=== PATIENT | male | born 1990 | race Caucasian/White ===

== ENCOUNTER 2016-06-30 10:33 | Emergency (ER) | payer BC, OTHER ==
[2016-06-30 11:25] VITALS: BP 123/84
[2016-06-30] MEDS ORDERED: Cyclopentolate 1% OPTH.SOL* 2 ML BTL RIGHT EYE ONE (12:43)
--- NOTE | 2016-06-30 12:49 | UC ---
Eye Complaint HPI - HPI Summary HPI Summary: redness, pain, tearing right eye today. No injury. No contacts. Mild viral URI symtpoms recently. No chemical exposures. Had pinkeye once before, it wasn't this painful. Very photophobic. Pain/pressure behind eyeball. - History of Current Complaint Chief Complaint: UCEye Stated Complaint: RIGHT EYE COMPLAINT Time Seen by Provider: 06/30/16 12:35 Hx Obtained From: Patient Onset/Duration: Gradual Onset, Lasting Days - 1; started last night, felt mildly gritty, then red and painful this AM. No crusting Timing: Constant Severity Initially: Mild Severity Currently: Moderate Location of Injury: Conjunctiva Character: Dull, Throbbing Aggravating Factor(s): Light, Blinking, Ultraviolet Exposure Alleviating Factor(s): Nothing Associated Signs And Symptoms: Positive: Photophobia, Drainage (Clear). Negative: Vision Impairment Right, Fever, Swelling - Risk Factors Penetrating Injury Risk Factor: Negative Globe Rupture Risk Factors: Negative Acute Glaucoma Risk Factors: Eye Inflammation Optic Artery Occlusion Risk Factors: Negative - Allergies/Home Medications Allergies/Adverse Reactions: Allergies Allergy/AdvReac Type Severity Reaction Status Date / Time No Known Allergies Allergy Verified 06/30/16 11:25 PMH/Surg Hx/FS Hx/Imm Hx Previously Healthy: Yes - Surgical History Surgical History: Yes Surgery Procedure, Year, and Place: Left elbow dislocated. Laceration over right eye. right elbow dislocation - Family History Known Family History: Positive: Other - no eye abnormalities - Social History Occupation: Student Lives: Alone - dorm Alcohol Use: Occasionally Substance Use Type: None Smoking Status (MU): Never Smoked Tobacco Review of Systems Constitutional: Negative Skin: Negative Eyes: Drainage, Eye Redness, Photophobia ENT: Nasal Discharge Respiratory: Cough - mild Cardiovascular: Negative Gastrointestinal: Negative Genitourinary: Negative Motor: Negative Neurovascular: Negative Musculoskeletal: Negative Neurological: Negative Psychological: Negative All Other Systems Reviewed And Are Negative: Yes Physical Exam Triage Information Reviewed: Yes Appearance: Well-Appearing, No Pain Distress, Well-Nourished Vital Signs: Initial Vital Signs Temp 98.6 F 06/30/16 11:19 Pulse 89 06/30/16 11:19 Resp 14 06/30/16 11:19 BP 123/84 06/30/16 11:19 Pulse Ox 96 06/30/16 11:19 Vital Signs Reviewed: Yes Eyes: Positive: Conjunctiva Inflamed - right eye. Negative: Discharge ENT Exam: Normal ENT: Positive: Pharynx normal, TMs normal. Negative: Tonsillar swelling, Trismus, Muffled/hoarse voice Neck exam: Normal Neck: Positive: Supple Respiratory Exam: Normal Cardiovascular Exam: Normal Musculoskeletal Exam: Normal Neurological Exam: Normal Psychological Exam: Normal Skin Exam: Normal Eye Complaint Course/Dx - Course Course Of Treatment: advised follow up with Ophthalmology if not better tomorrow - Differential Dx/Diagnosis Differential Diagnosis/HQI/PQRI: Conjunctivitis, Keratitis, Uveitis Provider Diagnoses: conjunctivitis Discharge - Discharge Plan Condition: Stable Disposition: HOME Prescriptions: Ciprofloxacin 0.3% OPTH.[place]* [Cipro 0.3% Opth*] 1 drop BOTH EYES Q4H #1 btl HYDROcodone/ACETAMIN 5-325 MG* [[place] 5-325 TAB*] 1 - 2 tab PO Q6H PRN #10 tab MDD 6 tab PRN Reason: Pain Patient Education Materials: Conjunctivitis (ED) Forms: *School Release Referrals: Elayne Serrano MD [Medical Doctor] - Non Staff,Doctor [Primary Care Provider] - Additional Instructions: If your eye is not improving in the next 24 hours, contact Dr. Serrano ( [facility]) Cold compresses to the eye Rest in a dark room, wear sunglasses when outside Put the antibiotic drops in BOTH eyes every four hours.
== END 2016-06-30 12:53 | disposition home or self-care (01) ==
LOC: UCCORT 10:33
DX: H10.31 Unspecified acute conjunctivitis, right eye (principal)
CPT/HCPCS: 99212; A9270-GY; G0463

== ENCOUNTER 2016-09-21 10:01 | Emergency (ER) | payer BC ==
[2016-09-21 10:11] VITALS: BP 134/79
[2016-09-21] MEDS ORDERED: methylPREDNISolone SOD SUCC* 125 MG 2 ML VIAL IM ONE (10:17)
--- NOTE | 2016-09-21 10:23 | UC ---
Throat Pain/Nasal Noah HPI - HPI Summary HPI Summary: had a sudden onset of sore throat, dysphagia, fever, MACDONALD and chills, bodyaches. - History of Current Complaint Chief Complaint: UCGeneralIllness Stated Complaint: SORE THROAT,CHILLS Time Seen by Provider: 09/21/16 10:14 Hx Obtained From: Patient Onset/Duration: Sudden Onset, Lasting Days Severity: Severe Associated Signs & Symptoms: Positive: Dysphagia, Hoarseness, Fever - Epiglottits Risk Factors Epiglottis Risk Factors: Negative - Allergies/Home Medications Allergies/Adverse Reactions: Allergies Allergy/AdvReac Type Severity Reaction Status Date / Time No Known Allergies Allergy Verified 09/21/16 10:10 Home Medications: Home Medications [id number] [Nyquil Severe Cold/Flu 5-6.25-10-325 mg/15Ml] 1 teasp PO DAILY 09/21/16 [History Confirmed 09/21/16] PMH/Surg Hx/FS Hx/Imm Hx Previously Healthy: Yes - Surgical History Surgical History: Yes Surgery Procedure, Year, and Place: Left elbow dislocated. Laceration over right eye. right elbow dislocation - Family History Known Family History: Positive: Other - no eye abnormalities Negative: Cardiac Disease, Hypertension - Social History Alcohol Use: Occasionally Substance Use Type: None Smoking Status (MU): Never Smoked Tobacco Review of Systems Constitutional: Fever, Chills, Fatigue Skin: Negative Eyes: Negative ENT: Sore Throat, Nasal Discharge Respiratory: Cough Cardiovascular: Negative Gastrointestinal: Negative Genitourinary: Negative Motor: Negative Neurovascular: Negative Musculoskeletal: Negative Neurological: Headache Psychological: Negative All Other Systems Reviewed And Are Negative: Yes Physical Exam Triage Information Reviewed: Yes Appearance: Well-Nourished, Ill-Appearing, Pain Distress Vital Signs: Initial Vital Signs Temp 100.2 F 09/21/16 10:06 Pulse 112 09/21/16 10:06 Resp 18 09/21/16 10:06 BP 134/79 09/21/16 10:06 Pulse Ox 97 09/21/16 10:06 Vital Signs Reviewed: Yes Eye Exam: Normal Eyes: Positive: Conjunctiva Clear ENT: Positive: Pharyngeal erythema, Nasal congestion, TM red, Tonsillar swelling - +4, Tonsillar exudate - on right tonsil Dental Exam: Normal Neck exam: Normal Neck: Positive: Supple, Nontender, Enlarged Nodes @ - bilateral cervical Respiratory Exam: Normal Respiratory: Positive: Chest non-tender, Lungs clear, Normal breath sounds Cardiovascular Exam: Normal Cardiovascular: Positive: No Murmur, Pulses Normal, Tachycardia Abdominal Exam: Normal Abdomen Description: Positive: Nontender, No Organomegaly, Soft Bowel Sounds: Positive: Present Musculoskeletal Exam: Normal Musculoskeletal: Positive: Strength Intact, ROM Intact, No Edema Neurological Exam: Normal Neurological: Positive: Alert, Muscle Tone Normal Psychological Exam: Normal Skin Exam: Normal Throat Pain/Nasal Course/Dx - Course Course Of Treatment: Hx obtained, exam performed, rapid strep obtained and neg, patient given solumedrol for reduction of inflammation of pharynx and tonsils. patient did take advil this morning, refused anything for pain. Monospot was obtained, ABX started prednisone prescribed. follow up with lab work. - Differential Dx/Diagnosis Differential Diagnosis/HQI/PQRI: Influenza, Laryngitis, Mononucleosis, Otitis Media, Pharyngitis, Sinusitis, URI Provider Diagnoses: tonsillitis. lymphadenopathy. fever. possible mono Discharge - Discharge Plan Condition: Stable Disposition: HOME Prescriptions: Cephalexin CAP* [Keflex CAP*] 500 mg PO BID #20 cap predniSONE TAB* [Deltasone TAB*] 40 mg PO DAILY #14 tab Patient Education Materials: Lymphadenopathy (ED) Additional Instructions: 1. Increase your fluid intake 2. Get plenty of rest 3. Take the medication as prescribed. 4. Lab work will be available tomorrow, will contact you with positive results. If you do not here from us finish your medications.
[2016-09-21 13:48] LABS: EBV Response NO
[2016-09-21 14:21] LABS: Mono Internal Control QC Line Present
[2016-09-21 14:22] LABS: Manual Entry Verification GRE0060
== END 2016-09-21 10:57 | disposition home or self-care (01) ==
LOC: UCCORT 10:01
DX: J03.90 Acute tonsillitis, unspecified (principal); R59.1 Generalized enlarged lymph nodes; R50.9 Fever, unspecified
CPT/HCPCS: 36415; 86308; 87651; 96372; 99212; G0463; J2930

== ENCOUNTER 2018-03-18 12:40 | Emergency (ER) | payer BC ==
--- OUTSIDE RECORDS SUMMARY | 2018-03-18 12:52 | XMS REPORT ---
:1990 Author Organization [facility] Address [facility] [address] [place] [address] Care Team Providers Name Role Phone Pedro De Oliveira Unavailable Unavailable PROBLEMS Unknown Problems ALLERGIES No Known Allergies ENCOUNTERS Encounter Location Date Diagnosis [facility] [address] Feb, Impacted cerumen of left [address] ear H61.22 and [id number] Immunization due Z23 [facility] [address] Oct, Establishing care with new [address] [place], [place] [id number] Z76.89 and Need for HPV vaccine Z23 [facility] [address] Mar, Acute frontal sinusitis, [address] recurrence not specified [id number] J01.10 and Sore throat J02.9 [facility] [address] September, Strep pharyngitis J02.[address] [address] [facility] [address] Aug, Left ankle injury 959.7 ; [facility] [address] [place], [place] [address] both eyes 372.00 ; Place of occurrence, home E849.0 and Striking against or struck accidentally by objects or persons in sports without subsequent fall E917.0 IMMUNIZATIONS Vaccine Route Administration Date Status HPV9 0.5mL (Gardasil 9) IM Intramuscular Mar 02, 2018 Administered Influenza (36 months & up) Fluzone IM Intramuscular Mar 02, 2018 Administered SOCIAL HISTORY Never Assessed REASON FOR REFERRAL FUNCTIONAL STATUS PLAN OF CARE Activity Details Follow Up prn, 3 Months Reason: VITAL SIGNS Weight 249.8 lbs 2018-03-02 Height 71 in 2018-03-02 BMI 34.84 kg/m2 2018-03-02 Heart Rate 84 /min 2018-03-02 Respiratory Rate 18 /min 2018-03-02 Temperature 97.9 degrees Fahrenheit 2018-03-02 Oximetry 97 2018-03-02 Blood pressure systolic 131 mm Hg 2018-03-02 Blood pressure diastolic 72 mm Hg 2018-03-02 MEDICATIONS Medication Instructions Dosage Frequency Start End Duration Status Date Date Debrox 6.5 % Otic Twice a day 5 drops 12h Feb, day(s) Active into 2018 affected right ear Flonase 50 Nasally Twice a 1 spray in 12h Mar, 30 day(s) Not-Takin MCG/ACT day each 2016 g nostril Augmentin Orally every 12 1 tablet 12h Mar, day(s) Not-Takin 875-125 MG hrs 2017 g Neti Pot Sinus Nasally bid as directed 12mar, day(s) Not-Takin Wash 2300-700 2016 g MG Mucinex DM Orally Twice a 1 tablet as 12mar, day(s) Not-Takin Maximum day needed 2016 g Strength 60-1200 MG Sudafed 12 Orally every 12 1 tablet as 12mar, day(s) Not-Takin Hour 120 MG hrs needed 2016 g PROCEDURES Procedure Date Ordered Result Body Site HPV9 0.5mL (Gardasil 9) Mar 02, 2018 IMMUNIZATION ADMIN Mar 02, 2018 Influenza (36 months & up) Mar 02, 2018 IMMUNIZATION ADMIN EACH ADD Mar 02, 2018 EAR IRRIGATION Mar 02, 2018 RESULTS No Results REASON FOR VISIT EAR BLOCKAGE Insurance Providers [facility] Member Patient Patient Patient Patient Patient Subscriber Subscriber Subscriber Group Insurance Plan Plan Plan Plan ID Relationship Address Phone Name Date of ID Name Date of No Type Insurance Insurance Insurance Coverage to Subscriber Address Phone Name Dates [place] [address] [phone] [employer] [place]AFNE [id number] [place] [address] PPO [address] [id number] [phone] [address] [id number] [facility] [id number] MEDICAL (GENERAL) HISTORY Type Description Date Surgical History ORIF right thumb
[2018-03-18 12:54] VITALS: BP 136/81
--- NOTE | 2018-03-18 13:33 | UC ---
Eye Complaint HPI - HPI Summary HPI Summary: Pt c/o sudden onset of left eye redness, "yellow " discharge that began 1 day ago. Pt reports that today he woke with left eye "glued shut". - History of Current Complaint Chief Complaint: UCEye Stated Complaint: LEFT EYE COMPLAINT Time Seen by Provider: 03/18/18 13:17 Hx Obtained From: Patient Onset/Duration: Sudden Onset, Lasting Days, Still Present Timing: Constant Severity Initially: Mild Severity Currently: Mild Pain Intensity: 0 Aggravating Factor(s): Nothing Alleviating Factor(s): Nothing Associated Signs And Symptoms: Positive: Drainage (Purulent) - Risk Factors Penetrating Injury Risk Factor: Negative Acute Glaucoma Risk Factors: Negative Optic Artery Occlusion Risk Factors: Negative - Allergies/Home Medications Allergies/Adverse Reactions: Allergies Allergy/AdvReac Type Severity Reaction Status Date / Time No Known Allergies Allergy Verified 03/18/18 12:51 PMH/Surg Hx/FS Hx/Imm Hx Previously Healthy: Yes - Surgical History Surgical History: Yes Surgery Procedure, Year, and Place: Left elbow dislocated. Laceration over right eye. right elbow break 2006 - Family History Known Family History: Positive: Other - no eye abnormalities Negative: Cardiac Disease, Hypertension - Social History Occupation: Employed Full-time Lives: With Family Alcohol Use: Occasionally Substance Use Type: None Smoking Status (MU): Never Smoked Tobacco Have You Smoked in the Last Year: No Review of Systems Constitutional: Negative Skin: Negative Eyes: Drainage, Eye Redness ENT: Negative Respiratory: Negative Cardiovascular: Negative Gastrointestinal: Negative Genitourinary: Negative Motor: Negative Neurovascular: Negative Musculoskeletal: Negative Neurological: Negative Psychological: Negative Is Patient Immunocompromised?: No All Other Systems Reviewed And Are Negative: Yes Physical Exam Triage Information Reviewed: Yes Appearance: Well-Appearing Vital Signs: Initial Vital Signs Temp 98.3 F 03/18/18 12:48 Pulse 88 03/18/18 12:48 Resp 16 03/18/18 12:48 BP 136/81 03/18/18 12:48 Pulse Ox 97 03/18/18 12:48 Vital Signs Reviewed: Yes Eyes: Positive: Conjunctiva Inflamed, Discharge ENT Exam: Normal Dental Exam: Normal Neck exam: Normal Respiratory Exam: Normal Cardiovascular Exam: Normal Musculoskeletal Exam: Normal Neurological Exam: Normal Psychological Exam: Normal Skin Exam: Normal Eye Complaint Course/Dx - Differential Dx/Diagnosis Differential Diagnosis/HQI/PQRI: Conjunctivitis Provider Diagnoses: conjunctivitis left eye Discharge - Sign-Out/Discharge Documenting (check all that apply): Patient Departure All imaging exams completed and their final reports reviewed: No Studies - Discharge Plan Condition: Stable Disposition: HOME Prescriptions: Polymyx/Trimethoprim OPTH* [Polytrim OPHTH*] 2 drop BOTH EYES Q6H 7 Days #1 btl Patient Education Materials: Conjunctivitis (ED) Referrals: [facility] [Outside] - If Needed No Primary Care Phys,NOPCP [Primary Care Provider] - - Billing Disposition and Condition Condition: STABLE Disposition: Home - Attestation Statements Provider Attestation: I was available for consult. This patient was seen by the JOJO. The patient was not presented to, seen by, or examined by me. -Lisa
== END 2018-03-18 13:39 | disposition home or self-care (01) ==
LOC: UCCORT 12:40
DX: H10.9 Unspecified conjunctivitis (principal)
CPT/HCPCS: 99212; G0463